=== PATIENT | female | born 1990 | race Caucasian/White ===

== ENCOUNTER → 2021-03-10 | Outpatient (CLI) | payer OTHER ==
[~2021-03-10] MED LIST: IBU600 MG PO; PRENATAL TABLET PO; PROFERRIN ES12 MG PO; ROXICODONE 55 MG/TAB PO
== END ==
LOC: ZCOL.LAB 02-28 08:08
DX: Z20.822 Contact with and (suspected) exposure to COVID-19 (principal)

== ENCOUNTER 2021-03-14 05:26 | Inpatient (IN) | payer OTHER ==
[~2021-03-14] VITALS: Ht 152.5 cm; Wt 72.7 kg
[2021-03-14] VITALS (18 sets, daily range): BP systolic 93–131; BP diastolic 54–72; PULSE 62–107; TEMP 97.3–98
--- NOTE | 2021-03-14 05:30 | NUR ---
Ambulatory to unit, accompanied by spouse, for scheduled C/S.
[2021-03-14] MEDS ORDERED: PRENATAL TABLET PO (06:28)
[2021-03-14] MEDS ORDERED: PROFERRIN ES12 MG PO (06:28)
[2021-03-14 06:31] LABS: BASO % 0.3 % (0.0-2.0); EOS # 0.1 (0.0-0.7); EOS % 1.2 % (0-4.0); GRAN # 6.8 (1.4-6.5); GRAN % 68.3 % (42.2-75.2); HEMOGLOBIN 11.9 g/dl (12.5-16.0); LYMPH # 1.9 (1.2-3.4); LYMPH % 19.1 % (20.0-51.0); MEAN CELL VOLUME 95 fl (80.0-100.0); MEAN CORPUSCULAR HEMOGLOBIN 32 pg (27.0-31.0); MEAN CORPUSCULAR HGB CONC 34 g/dl (33.0-37.0); MEAN PLATELET VOLUME 10.5 fl (7.4-10.4); MONO % 10.3 % (1.7-9.3); PLATELET COUNT 222 K/mm3 (130-400); RED BLOOD COUNT 3.72 M/mm3 (4.10-5.30); REDCELL DISTRIBUTION WIDTH-CV 13.4 % (11.5-14.5)
[2021-03-14 06:33] LABS: HEMATOCRIT 35.5 % (37.0-47.0)
--- NOTE | 2021-03-14 16:40 | NUR ---
Patient assisted to edge of bed and feet dangled. Patient assited to bathroom with standby assist. Pericare done, new gown/pad/underwear on. Binder on and patient ambulating room.
[2021-03-15] VITALS: BP 107/61; PULSE 85; TEMP 98.2
[2021-03-15 04:00] VITALS: BP 115/69; PULSE 85; TEMP 97.7
[2021-03-15 09:00] VITALS: BP 99/57; PULSE 77; TEMP 97.6
[2021-03-15] MEDS ORDERED: IBU600 MG PO (09:08)
[2021-03-15] MEDS ORDERED: ROXICODONE 55 MG/TAB PO (09:08)
[2021-03-15 16:15] VITALS: BP 92/63; PULSE 77; TEMP 97.8
--- NOTE | 2021-03-15 16:20 | NUR ---
Ibuprofen 600 mg given per request and as ordered.
--- NOTE | 2021-03-15 18:15 | NUR ---
Tylenol 1000 mg, oxycodone 5 mg given per request and as ordered.
[2021-03-15 20:30] VITALS: BP 100/62; PULSE 85; TEMP 98.3
[2021-03-16 09:30] VITALS: BP 99/62; PULSE 79; TEMP 98.2
--- NOTE | 2021-03-16 12:00 | NUR ---
Discharge instructions and follow up care reviewed with pt and at the bedside. Both verbalized an understanding, agreed with the plan and states no questions or concerns at this time.
== END 2021-03-16 12:53 | disposition home or self-care (01) | DRG 788 ==
LOC: OB 05:26
PROVIDERS: ADMIT Obstetrics & Gynecology
PROC: 10D00Z1 Extraction of Products of Conception, Low, Open Approach (ICD-10-PCS; principal; 2021-03-14)
DX: O34.211 Maternal care for low transverse scar from previous cesarean delivery (principal); Z3A.39 39 weeks gestation of pregnancy; Z37.0 Single live birth
CPT/HCPCS: J0171; J0690; J1885; J2175; J2370; J2405; J2590; J7120

== ENCOUNTER 2024-03-04 05:37 | Inpatient (IN) | payer OTHER ==
[~2024-03-04] VITALS: Ht 149.9 cm; Wt 73.2 kg
[2024-03-04] VITALS (20 sets, daily range): BP systolic 83–113; BP diastolic 45–73; PULSE 65–100; TEMP 97.6–98
--- NOTE | 2024-03-04 05:40 | NUR ---
Pt ambulatory to 209 for scheduled with spouse. Clean gown on. EFM and TOCO explained and applied. Pt denies contractions, leaking of fluids or vaginal bleeding. Reports good movement. Plan of care explained. 0600: IV started and labs obtained via IV site. LR bolus infusing without difficulty.
[2024-03-04] MEDS ORDERED: LR 1,000 ML IV SCH ×2 (06:15)
[2024-03-04] MEDS ORDERED: diphenhydrAMINE 50 MG/ML 1 ML VIAL IV PRN (06:15)
[2024-03-04] MEDS ORDERED: droPERidol 2.5 MG/ML 2 ML VIAL IV PRN (06:15)
[2024-03-04] MEDS ORDERED: Ondansetron 4 MG/2 ML VIAL IV PRN ×2 (06:15→09:00)
--- NOTE | 2024-03-04 06:15 | NUR ---
REPORT FROM DARRIAN WARD. PT IN ROOM ON MONITOR, IVF INFUSING. THIS RN BEGINS DISCUSSING PLAN OF CARE FOR THE DAY. CONSENTS SIGNED AND ACKNOWLEGED. BOTH PATIENT AND SPOUSE VERBALIZED UNDERSTANDING. NO OTHER CONCERNS AT THIS TIME.
[2024-03-04 06:31] LABS: BASO % 0.3 % (0.0-2.0); EOS # 0.1 K/mm3 (0.0-0.7); EOS % 1.1 % (0.0-4.0); GRAN # 6.1 K/mm3 (1.4-6.5); GRAN % 68.5 % (42.2-75.2); HEMOGLOBIN 11.8 g/dl (12.5-16.0); LYMPH # 1.8 K/mm3 (1.2-3.4); LYMPH % 20.6 % (20.0-51.0); MEAN CELL VOLUME 97 fl (80.0-100.0); MEAN CORPUSCULAR HEMOGLOBIN 32 pg (27-31); MEAN CORPUSCULAR HGB CONC 33 g/dl (33.0-37.0); MEAN PLATELET VOLUME 10.9 fl (7.4-10.4); MONO # 0.8 K/mm3 (0.1-0.6); MONO % 9.2 % (1.7-9.3); PLATELET COUNT 220 K/mm3 (130-400); RED BLOOD COUNT 3.72 M/mm3 (4.10-5.30); REDCELL DISTRIBUTION WIDTH-CV 13.6 % (11.5-14.5)
[2024-03-04 06:32] LABS: HEMATOCRIT 35.9 % (37.0-47.0)
[2024-03-04] MEDS ORDERED: NS 30 ML IV ONE (07:07)
[2024-03-04] MEDS ORDERED: Oxytocin 10 UNITS/ML VIAL ONE (07:07)
[2024-03-04] MEDS ORDERED: Ketorolac 30 MG/ML VIAL ONE (07:15)
[2024-03-04] MEDS ORDERED: Ondansetron 4 MG/2 ML VIAL ONE (07:15)
[2024-03-04] MEDS ORDERED: EPINEPHrine 1 MG/1 ML Ampule ONE (08:33)
[2024-03-04] MEDS ORDERED: Magnes Hydrox (MOM) 80 MG/ML 30 ML CUP PO PRN (09:00)
[2024-03-04] MEDS ORDERED: Morphine 4 MG/ML VIAL IV PRN (09:00)
[2024-03-04] MEDS ORDERED: Loratadine 10 MG TAB PO PRN (09:00)
[2024-03-04] MEDS ORDERED: LR 1,000 ML IV PRN (09:00)
[2024-03-04] MEDS ORDERED: Acetaminophen 500 MG TAB PO SCH (09:00)
[2024-03-04] MEDS ORDERED: Measles/Mumps/Rubella Virus Vaccine Live w Diluent 0.5 ML VIAL SQ SCH (09:00)
[2024-03-04] MEDS ORDERED: Naloxone 0.4 MG/ML VIAL IV PRN (09:00)
[2024-03-04] MEDS ORDERED: oxyCODONE 5 MG TAB PO PRN (09:00)
[2024-03-04] MEDS ORDERED: Ibuprofen 600 MG TAB PO SCH (14:55)
[2024-03-04] MEDS ORDERED: Sennosides/Docusate 8.6-50 MG TAB PO SCH (17:00)
[2024-03-04] MEDS ORDERED: traZODone 50 MG TAB PO PRN (21:00)
[2024-03-05 00:30] VITALS: BP 108/75; PULSE 74; TEMP 97.8
[2024-03-05 03:15] VITALS: BP 110/60; PULSE 60; TEMP 98.2
[2024-03-05 16:26] VITALS: BP 99/63; PULSE 81
[2024-03-05 19:15] VITALS: BP 116/84; PULSE 75; TEMP 98.5
[2024-03-06 07:15] VITALS: BP 104/73; PULSE 77; TEMP 97.6
[2024-03-06 16:30] VITALS: BP 115/79; PULSE 86
[2024-03-06 20:00] VITALS: BP 107/79; PULSE 74; TEMP 97.9
[2024-03-07 08:00] VITALS: BP 113/75; PULSE 71; TEMP 97.9
--- NOTE | 2024-03-07 11:07 | NUR ---
DISCHARGE EDUCATION COMPLETED, HEALTH HISTORY GIVEN AND FOLLOW UP APPOINTMENTS DISCUSSED. QUESTIONS INVITED AND ANSWERED.
== END 2024-03-07 11:40 | disposition home or self-care (01) | DRG 788 ==
LOC: OB 05:37
PROVIDERS: ADMIT Obstetrics & Gynecology
PROC: 10D00Z1 Extraction of Products of Conception, Low, Open Approach (ICD-10-PCS; principal; 2024-03-04)
DX: O34.211 Maternal care for low transverse scar from previous cesarean delivery (principal); Z3A.39 39 weeks gestation of pregnancy; Z37.0 Single live birth; Z86.16 Personal history of COVID-19
CPT/HCPCS: J0171; J0665; J0690; J1100; J1885; J2405; J2590; J7120